=== PATIENT | male | born 2000 | race Caucasian/White ===

== ENCOUNTER 2021-12-06 12:35 | Emergency (ER) | payer MEDICAID, SELFPAY ==
[2021-12-06 12:39] VITALS: BP 135/73; PULSE 85; RESP 19; TEMP 36.2; O2SAT 97; BMI 26.9
--- NOTE | 2021-12-06 13:26 | ED.WOUNDLAC ---
HPI - Wound/Laceration General Chief Complaint: Wound/Laceration Stated Complaint: r middle r ring r pinky finger laceration Time Seen by Provider: 12/06/21 13:06 Source: patient Mode of arrival: ambulatory Limitations: no limitations History of Present Illness HPI narrative: 21 yo male presents to the ER for evaluation of lacerations to his right 3rd, 4th, and 5th fingers that he sustained earlier this morning while doing dishes. He states he cut himself accidentally with a sharp knife. He tried to use skin glue at home but it did not work well so he came to the ER for further evaluation. He is able to fully extend and flex the fingers, he has no numbness or tingling. No bleeding on arrival. Onset (ago): hour(s) Extremity Location: right: hand Place: home Patient tetanus UTD: No Context: accidental Associated symptoms: none Treatments prior to arrival: bandage Related Data Allergies Allergy/AdvReac Type Severity Reaction Status Date / Time trazodone [TRAZODONE] Allergy Mild TROUBLE Unverified 03/09/20 17:19 MOVING, paralysis Trazadone Allergy Unknown Uncoded 02/12/18 00:00 Review of Systems Review of Systems: Constitutional: No Fever, No Chills Cardiovascular: No Chest Pain, No SOB Gastrointestinal: No Nausea, No Vomiting, No Diarrhea, + abdominal Pain (chronic x2 yrs) Musculoskeletal: No joint pain, No Myalgias Skin: + Skin Lesions, No rash Neuro: No Weakness, No Numbness, No Dizziness, No Headache Psych: + Anxiety/Panic, No Depression Heme/Lymph: No Bruising, No Lymphadenopathy PMFSH Social History Social History Advance Directives: No Advance Directives Information Provided: Yes Physical Exam Vital Signs: Vital Signs: Last Vital Signs Temp 97.2 F 12/06/21 12:39 Pulse 85 12/06/21 12:39 Resp 19 12/06/21 12:39 BP 135/73 12/06/21 12:39 Pulse Ox 97 12/06/21 12:39 O2 Del Method 12/06/21 12:39 BMI result Body Mass Index 26.9 Appearance: Alert. Oriented X3. No acute distress. HEENT: normal inspection CVS: Normal heart rate and rhythm. Pulses normal. Respiratory: No respiratory distress. Skin: Skin warm and dry. Normal skin color. Normal skin turgor. No rashes. Extremities: Palmar aspect of the 3rd, 4th, 5th digit with superficial 1 cm lacerations without active bleeding. Superficial epithelialization has already occurred. normal movement and sensation of all digits. Neuro: Oriented X 3. No motor deficit. No sensory deficit. Course Course Course Narrative: 21-year-old male presents to the ER for superficial lacerations to the palmar aspect of his 3rd, 4th, 5th digits. Wounds are old and RT starting to heal. No active bleeding. There superficial and not deep. He has normal range of motion. Normal sensation. Dermabond and Steri-Strips were used to approximate wound edges and close the wounds. Wound care was discussed with the patient. tetanus shot given. Stable for DC home. Critical Care Time Critical Care Time Critical Care Time: No Discharge Plan Discharge Clinical Impression: Laceration Patient Disposition: Home, Self-Care Instructions: Finger Laceration (ED) Additional Instructions: Do not get wet for 48 hours, after that you can briefly wash with soap and water then pat dry. Keep wound clean and covered. Do not submerge in water, no swimming. If you develop signs of infection including increased pain, swelling, redness or drainage of pus come back to the ER for further evaluation.
[2021-12-06] MEDS: Diphth,Pertus(ACell),Tet Adult 0.5 ML SYRINGE IM (14:15)
--- NOTE | 2021-12-06 14:24 | PC.NURSE ---
PT WENT TO THE BATHROOM X 5 WHILE HERE IN [facility]. PT SWEATY, STATES I HAVE GASTRITIS AND I HAVE BEEN DEALING WITH THIS FOR 2 YEARS. DENIES ANY NAUSEA OR VOMITING.
== END 2021-12-06 14:26 | disposition home or self-care (01) ==
PROVIDERS: Emergency Provider Student in an Organized Health Care Education/Training Program
DX: S61.212A Laceration without foreign body of right middle finger without damage to nail, initial encounter (principal); S61.214A Laceration without foreign body of right ring finger without damage to nail, initial encounter; S61.216A Laceration without foreign body of right little finger without damage to nail, initial encounter; W26.0XXA Contact with knife, initial encounter; Y93.G1 Activity, food preparation and clean up; Y92.010 Kitchen of single-family (private) house as the place of occurrence of the external cause; Y99.9 Unspecified external cause status
CPT/HCPCS: 90471; 90715; 99283; 99284